=== PATIENT | female | born 1950 | race Caucasian/White ===

== ENCOUNTER 2017-06-15 14:12 | Inpatient (IN) | payer OTHER, SELFPAY ==
[2017-06-15] VITALS (10 sets, daily range): BP systolic 119–158; BP diastolic 62–84; PULSE 67–100; RESP 16–20; TEMP 36.1–36.7; O2SAT 94–100; BMI 33.0; BMI 34.2
--- NOTE | 2017-06-15 10:15 | EKG12_ITS ---
Test Reason : PRE OP Blood Pressure : / mmHG Vent. Rate : 063 BPM Atrial Rate : 063 BPM P-R Int : 150 ms QRS Dur : 090 ms QT Int : 420 ms P-R-T Axes : 036 060 043 degrees QTc Int : 429 ms Normal sinus rhythm Normal ECG No previous ECGs available Confirmed by YANA DA SILVA, NIKIA ([id number]), editor managing newspaper EDDIE MEADOWS ([id number]) on 06/19/2017 9:43:00 AM Referred By: Zoila Rodríguez Confirmed By:NIKIA MILLAN MD
[2017-06-15] MEDS: Phenazopyridine 95 MG Tablet 190 MG PO (11:28)
[2017-06-15] MEDS: Cefazolin 2 GM in 0.9% Normal Saline 100 ML IV (11:37)
[2017-06-15] MEDS: Bupiv/Epi 0.5% Mpf 30 ML Vial (13:50)
--- NOTE | 2017-06-15 14:19 | PCM.OPRPT ---
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 vaginal biopsy Description of Surgical Findings:: prominent iliac artery overlying sacral promontory and sacrum; bilateral efflux of pyridium stained urine from ureteral orifices. No bowel injury. No bladder injury. drawer in stitch bonding machine: Rola Artuhr Type of Anesthesia:: General Special Medications: .5% marcaine with epinephrine Specimen's removed: none Drains: rivers to pacu Estimated Blood Loss (mL): 20 mL Fluids Replaced: 1900 mL Description of Procedure: The patient was taken to the operating room where general anesthesia was initiated. The patient was placed in dorsal lithotomy position and prepped and draped in sterile fashion. A surgical timeout occurred. A rivers catheter was placed in the patient's bladder. A Pfannenstiel low abdominal incision was made at the prior incision site. The incision was carried through the subcutaneous tissue and the fascia was incised. The fascial incision was extended bilaterally and the rectus abdominus muscle was disected off the fascial superiorly and inferiorly with metzenbaum scissors and electrocautery. The muscle was split in the middle and peritoneum was entered using metzenbaum scissors. Adhesions of the colon to the bladder and vagina were noted and lysis of adhesions was performed sharply and bluntly in order to expose the cul-de-sac and the the sacrum. The bowel was packed in the upper abdomen exposing the cul-de-sac and sacral promontory and a Bookwalter was used for retraction. The peritoneum overlying the sacral promontory was incised with electrocautery. The patient's right iliac artery was prominent and overlying the sacral promontory and the sacrum. The decision was made to proceed with a sacrospinous ligament suspension. Two prolene sutures were passed through the patient's sacrospinous ligament on her right side. With an EEA sizer in the vagina, the prolene sutures were passed through the vaginal cuff and tied, elevating the vaginal apex. Hemostasis was obtained. Cystoscopy was performed and bilateral efflux of pyridium stained urine was noted. All the packing was removed. 3-O chromic was used in a interrupted fashion to approximate the rectus muscles in the midline. The fascia was closed using looped PDS in a running fascia. Subcutaneous tissue was closed using 3-0 Vicryl and the skin was closed using 4-0 Monocryl in subcuticular fashion. There was no injury to the rectum or the bladder. The bladder appeared completely normal. The rectal exam was done at the end of the procedure after the cystoscopy. A 3 mm punch biopsy was performed of the skin to the right of the anus. Anesthesia was discontinued. All needle, instrument, and sponge counts were correct x 2. The patient was taken to recovery room in stable condition draining clear urine from her rivers catheter. Grafts/Implants Used: none - Complications none
--- NOTE | 2017-06-15 15:48 | MISC_PTH ---
PATIENT: MAYELA TINOCO LOC: [facility] U#:[id number] AGE/SX: 67/F ROOM: [facility]312 RE06/15/[address]: Dr. Zoila Rodríguez MD : 1950 BED: 1 DIS: 06/16/2017 SPEC #: [id number] RECD: 06/15/17 15:48 STATUS: TASIA ESTEBAN #: [id number] MEL: 06/15/17 15:[address]: Zoila Rodríguez DEPT: SURGICAL PATHOLOGY RECD BY: Miko Leyva ENTERED: 06/18/17 08:15 SP TYPE: MISC KIKE DR: Dr. Vernell Wilks, DO Tissues: Rectum, NOS Procedures: Surgery Specimen Level IV HEADER OPERATION: Open abdominal sacrocolpopexy, cystoscopy, rectal biopsy PRE-OP DIAGNOSIS: Vaginal vault prolapse rectocele TISSUE SUBMITTED: Rectal biopsy MICROSCOPIC DIAGNOSIS Rectum, biopsy: Hyperkeratosis and mild superficial chronic inflammation. No evidence of malignancy. AM:tatianna 06/19/17 COMMENT The findings are nonspecific. Clinical correlation is suggested. MICROSCOPIC DESCRIPTION Slides are reviewed. Sections show squamous mucosa with hyperkeratosis. The superficial dermis contains polymorphous lymphocytes. Eosinophils are not present and no significant population of plasma cells are seen. GROSS DESCRIPTION Received in fixative is one container labeled with the patient's name and designated rectal biopsy. The specimen consists of one irregular fragment of light espino soft tissue that measures 0.5 x 0.2 x 0.1 cm. The specimen is totally submitted in one cassette. / SJ:tatianna 06/18/17 TC:3 CPT: 21029
[2017-06-15] MEDS: Ketorolac 15 MG/ML Vial IV ×2 (16:19→20:54)
[2017-06-15] MEDS: Dextrose 5%-Lactated Ringers 1,000 ML 125 ML IV (16:19)
[2017-06-15] MEDS: Ondansetron 4 MG/2 ML Vial IV (20:54)
[2017-06-16] MEDS: Dextrose 5%-Lactated Ringers 1,000 ML 125 ML IV ×2 (01:09→08:28)
[2017-06-16] MEDS: Ketorolac 15 MG/ML Vial IV ×2 (02:52→09:27)
[2017-06-16 02:55] VITALS: BP 119/69; PULSE 76; RESP 16; TEMP 36.8; O2SAT 98
[2017-06-16] MEDS: Acetaminophen 500 MG Tablet 1000 MG PO ×2 (06:08→14:24)
--- NOTE | 2017-06-16 06:19 | PCM.DC.AHY ---
Discharge Diet: No Restrictions Discharge Activity: Return to Normal Activity, May Not Drive - while taking narcotic pain medications. May resume sexual activity in: 6-8 weeks Call your doctor if your incision/area has: Continuous Slow Oozing, Sudden Increased Bleeding, Increased Pain/ Swelling, Increased Redness, Foul Smelling Discharge Call your doctor if you observe: Fever of 101 or Higher Allergies/Adverse Reactions: Allergies No Known Allergies Allergy (Verified 06/11/17 14:27) Medications to take at Discharge NK [NK] 06/11/17 Primary Care Physician: Vernell Wilks DO [Primary Care Provider] - Please Follow Up With: Zoila Rodríguez MD When: in 6 weeks
[2017-06-16 08:17] VITALS: O2SAT 95
[2017-06-16 09:00] VITALS: BP 113/67; PULSE 66; RESP 16; TEMP 36.8; O2SAT 98
[2017-06-16] MEDS: 0.9% NaCl Peripheral Flush Adult/Peds IV (09:28)
--- NOTE | 2017-06-16 13:31 | CASEMGMT ---
RN RAJESH Face to Face with patient for initial transition planning/care coordination assessment. RN CM introduced self and role at [facility]. Patient lying in bed, alert and oriented. Patient willing to participate in assessment and is able to answer all questions appropriately. Care providers, pharmacy, and demographics verified. Patient lives at home with and has family support. Patient is independent, denies use of DME. Patient wishes to discharge home, denies need for home health or DME at this time. Patient states she has no further needs or concerns at this time. CM to follow for discharge planning needs that may arise. Disposition Plan: Patient to discharge home with family support and follow-up plans in place.
[2017-06-16 14:26] VITALS: BP 132/66; PULSE 66; RESP 16; TEMP 37.1; O2SAT 100
== END 2017-06-16 16:39 | disposition home or self-care (01) | DRG 748 ==
LOC: MS3 14:23
PROVIDERS: Admitting Provider Obstetrics & Gynecology; Family Provider Family Medicine; PCP Family Medicine; Visit Provider Obstetrics & Gynecology
PROC: 0TJB8ZZ Inspection of Bladder, Via Natural or Artificial Opening Endoscopic (ICD-10-PCS; CPT 57120; principal; 2017-06-15 11:15)
DX: N99.3 Prolapse of vaginal vault after hysterectomy (principal); K62.89 Other specified diseases of anus and rectum; L57.0 Actinic keratosis
CPT/HCPCS: 36415; 86850; 86900; 88305; 93005; J7120; A4216; J2405

== ENCOUNTER → 2017-06-19 16:26 | Outpatient (CLI) | payer OTHER, SELFPAY | PROVIDERS: Family Provider Family Medicine; PCP Family Medicine; Visit Provider Nurse Practitioner Women's Health | DX: R39.15 Urgency of urination (principal) | CPT/HCPCS: 87086; 87088; 87186 ==

== ENCOUNTER → 2017-11-01 08:19 | Outpatient (CLI) | payer OTHER, SELFPAY ==
[2017-11-01 09:56] LABS: Absolute Lymphocyte Count 1.98 X10^3/ul (0.83-4.51); Absolute Neutrophil Count 2.8 X10^3/uL (2.0-7.7); Basophil# 0.03 X10^3/uL; Basophil% 0.6 % (0-1); Eosinophil# 0.19 X10^3/uL; Eosinophils% 3.5 % (0-5); Hematocrit 44.2 % (37-47); Hemoglobin 14.2 g/dl (12.0-15.0); Lymphocyte # 1.98 X10^3/ul (4.0); Lymphocyte % 36.7 % (19-41); Mean Corp Hgb Conc 32.1 g/gl (32-36); Mean Corpuscular Hgb 30.1 pg (27.0-32.0); Mean Corpuscular Volume 93.8 fL (81-99); Mean Platelet Vol. 9.3 fl (6.2-12.0); Monocyte% 7.4 % (0-10); Neutrophil # 2.78 X10^3/uL (2.7-7.7); Neutrophil % 51.6 % (47-70); POSITIVE COUNT NO; POSITIVE DIFFERENTIAL NO; POSITIVE MORPHOLOGY NO; Platelet Count 298 K/mm3 (150-450); RBC Distribution Width CV 13.9 % (11.6-14.6); RBC Distribution Width SD 47.5 fl (35.1-43.9); Red Blood Count 4.71 M/mm3 (4.2-5.4); White Blood Count 5.4 K/mm3 (4.4-11.0)
[2017-11-01 10:32] LABS: ALB/GLOB Ratio 0.9 RATIO (0.9-2.4); AST(SGOT) 16 U/L (15-37); Alanine Aminotransfer ALT/SGPT 22 U/L (13-56); Albumin, Serum 3.8 g/dL (3.2-5.0); Alkaline Phosphatase 66 U/L (45-117); Anion Gap 7 (5-15); BUN 14 mg/dL (7-18); BUN/Creat Ratio 14.9 RATIO (10-20); Chloride 106 mmol/L (98-107); Cholesterol 206 mg/dL (200); Creatinine, Serum 0.94 mg/dL (0.55-1.02); EST Glomerular Filtration Rate 63 mL/min (>60); Est Glom Filt Rate - Afr Amer 76 mL/min (>60); Globulin 4.2 g/dL (2.2-4.2); Glucose 88 mg/dL (74-106); High Density Lipoprotein 34 mg/dL; Potassium 4.4 mmol/L (3.5-5.1); Sodium Level 140 mmol/L (136-145); Thyroid Stim Hormone (TSH) 1.81 uIU/mL (0.358-3.74); Triglycerides 226 mg/dL; Very Low Density Lipoprotein 45 mg/dL (5-40)
== END ==
LOC: LAB.FUTURE 05-06 00:34 → BFHLAB 03-18 13:20
PROVIDERS: Family Provider Family Medicine; PCP Family Medicine; Visit Provider Family Medicine
DX: Z00.01 Encounter for general adult medical examination with abnormal findings (principal); E78.5 Hyperlipidemia, unspecified; E55.9 Vitamin D deficiency, unspecified; R53.83 Other fatigue
CPT/HCPCS: 36415; 80053; 80061; 82306; 84443; 85025

== ENCOUNTER → 2017-11-01 10:34 | Outpatient (CLI) | payer OTHER, SELFPAY | PROVIDERS: Family Provider Family Medicine; PCP Family Medicine; Visit Provider Family Medicine | DX: Z12.31 Encounter for screening mammogram for malignant neoplasm of breast (principal) | CPT/HCPCS: 77063; 77067 ==

== ENCOUNTER → 2019-03-31 07:57 | Outpatient (CLI) | payer MEDICARE, SELFPAY ==
[2017-06-19 15:30] VITALS: BMI 33.3
[2019-03-31 08:17] LABS: Absolute Lymphocyte Count 2.56 X10^3/uL (0.83-4.51); Absolute Neutrophil Count 3.1 X10^3/uL (2.0-7.7); Basophil# 0.05 X10^3/uL; Basophil% 0.8 % (0-1); Eosinophil# 0.28 X10^3/uL; Eosinophils% 4.4 % (0-5); Hemoglobin 14.3 g/dL (12.0-15.0); Lymphocyte # 2.56 X10^3/ul (4.0); Lymphocyte % 39.8 % (19-41); Mean Corp Hgb Conc 31.8 g/dL (32-36); Mean Corpuscular Hgb 29.8 pg (27.0-32.0); Mean Corpuscular Volume 93.8 fL (81-99); Mean Platelet Vol. 8.8 fl (6.2-12.0); Monocyte# 0.45 X10^3/uL; NRBC Flagged by Analyzer 0 % (0-5); Neutrophil # 3.08 X10^3/uL (2.7-7.7); Neutrophil % 47.8 % (47-70); Platelet Count 296 K/mm3 (150-450); RBC Distribution Width CV 13.2 % (11.6-14.6); RBC Distribution Width SD 45.6 fl (35.1-43.9); White Blood Count 6.4 K/mm3 (4.4-11.0)
[2019-03-31 09:12] LABS: Vitamin D,25 Hydroxy 27.6 ng/mL (29.95-100.01)
[2019-03-31 09:40] LABS: ALB/GLOB Ratio 0.9 RATIO (0.9-2.4); AST(SGOT) 17 U/L (15-37); Alanine Aminotransfer ALT/SGPT 26 U/L (13-56); Albumin, Serum 3.7 g/dL (3.2-5.0); Alkaline Phosphatase 68 U/L (45-117); Anion Gap 2 (5-15); BUN 11 mg/dL (7-18); BUN/Creat Ratio 11.1 RATIO (10-20); Calcium,Total 8.9 mg/dL (8.5-10.1); Chloride 107 mmol/L (98-107); Cholesterol 203 mg/dL (200); Creatinine, Serum 0.99 mg/dL (0.55-1.02); EST Glomerular Filtration Rate 59 mL/min (>60); Est Glom Filt Rate - Afr Amer 71 mL/min (>60); Globulin 4.1 g/dL (2.2-4.2); Glucose 96 mg/dL (74-106); High Density Lipoprotein 39 mg/dL; Potassium 4.1 mmol/L (3.5-5.1); Protein, Total 7.8 g/dL (6.4-8.2); Sodium Level 140 mmol/L (136-145); Thyroid Stim Hormone (TSH) 2.42 uIU/mL (0.358-3.74); Triglycerides 227 mg/dL; Very Low Density Lipoprotein 45 mg/dL (5-40)
== END ==
LOC: LAB.FUTURE 07:59 → LAB 08:02
PROVIDERS: Family Provider Family Medicine; PCP Family Medicine; Referring Provider Family Medicine; Visit Provider Family Medicine
DX: Z51.81 Encounter for therapeutic drug level monitoring (principal)
CPT/HCPCS: 36415; 80053; 80061; 82306; 84443; 85025

== ENCOUNTER → 2019-03-31 08:13 | Outpatient (CLI) | payer MEDICARE, SELFPAY ==
[2017-06-19 15:30] VITALS: BMI 33.3
--- NOTE | 2019-03-31 08:16 | BI_ITS ---
MAMMOGRAPHY - BILATERAL SCREENING REASON FOR EXAM: Female, 68 years old. Routine annual screening examination. PERTINENT HISTORY: Sister with breast cancer. History of remote right breast biopsy. TECHNIQUE: Digital bilateral breast dash (3D mammographic acquisition) in the CC and MLO projections. 2-D mediolateral oblique (MLO) and craniocaudad (CC) views of both breasts were obtained. CAD: Full Field Digital Mammography with Computer Added Detection was performed. COMPARISON: Comparison is made with prior examination dated November 01, 2017 and October 23, 2016. FINDINGS: Breast Composition: The breasts are almost entirely fatty. There are no dominant masses or suspicious calcifications. No other significant abnormalities are identified. There has been no significant change since the prior study. BI/SCREEN MAMM (CAD) W/DASH BILAT IMPRESSION: Stable bilateral screening mammogram. Yearly follow-up mammogram recommended. (A) ASSESSMENT CATEGORY: BIRADS Category 1: Negative. A letter regarding these results will be sent to the patient by the facility within 30 days. Approximately 10% of breast cancers are not detected by mammography. A normal mammogram should not delay biopsy of a clinically suspicious abnormality. [id number] Electronically Signed: Bal Fernandez, at 9:49 EST , Service support ,
== END ==
PROVIDERS: Family Provider Family Medicine; PCP Family Medicine; Referring Provider Family Medicine; Visit Provider Family Medicine
DX: Z12.31 Encounter for screening mammogram for malignant neoplasm of breast (principal); E55.9 Vitamin D deficiency, unspecified; E78.5 Hyperlipidemia, unspecified; Z51.81 Encounter for therapeutic drug level monitoring
CPT/HCPCS: 36415; 77063; 77067; 80053; 80061; 82306; 84443; 85025

== ENCOUNTER → 2020-06-24 09:00 | Outpatient (CLI) | payer MEDICARE, SELFPAY ==
[2017-06-19 15:30] VITALS: BMI 33.3
== END ==
PROVIDERS: PCP Family Medicine
DX: Z52.89 Donor of other specified organs or tissues (principal)
CPT/HCPCS: 36415